=== PATIENT | female | born 1975 | race Two or more races ===

== ENCOUNTER 2020-03-18 06:21 | Day surgery (SDC) | payer OTHER ==
[~2020-03-18] VITALS: Ht 162.6 cm; Wt 53.1 kg
[2020-03-19] MEDS ORDERED: SIMETHICONE80 MG PO (10:49)
[2020-03-19] MEDS ORDERED: ULTRAM50 MG PO (10:49)
[2020-03-19] MEDS ORDERED: COLACE100 MG PO (10:49)
== END 2020-03-19 08:00 | disposition home or self-care (01) ==
LOC: CIR.AMB 06:21 → SURH 06:21 → OB/GYN 06:21 → O/R 06:21 → SURH 07:15 → EDSTATUS 10:45 → SURH 10:45 → OB/GYN 11:02 → O/R 11:02 → CIR.AMB 03-19 08:00 → OB/GYN 03-19 12:55
PROVIDERS: ATTEND Obstetrics & Gynecology
DX: D25.2 Subserosal leiomyoma of uterus (principal); N72 Inflammatory disease of cervix uteri; N80.1 Endometriosis of ovary

== ENCOUNTER 2022-03-09 10:40 | Outpatient (CLI) | payer OTHER ==
[~2022-03-09 10:40] MED LIST: COLACE100 MG PO; SIMETHICONE80 MG PO; ULTRAM50 MG PO
== END 2022-03-09 10:41 | disposition home or self-care (01) ==
LOC: SONOGRAMA 10:40
PROVIDERS: ATTEND Pathology Anatomic Pathology & Clinical Pathology
DX: E04.1 Nontoxic single thyroid nodule (principal)